=== PATIENT | male | born 1970 ===

== ENCOUNTER 2018-08-27 16:19 | Emergency (ER) | payer OTHER ==
--- NOTE | 2018-08-27 18:26 | CT ---
Date of service: 08/27/2018 PROCEDURE: CT HEAD WITHOUT CONTRAST. HISTORY: Headache COMPARISON: None available. TECHNIQUE: Axial computed tomography images were obtained through the head/brain without intravenous contrast. Radiation dose: Total exam DLP = 838.68 mGy-cm. This CT exam was performed using one or more of the following dose reduction techniques: Automated exposure control, adjustment of the mA and/or kV according to patient size, and/or use of iterative reconstruction technique. FINDINGS: HEMORRHAGE: No intracranial hemorrhage. BRAIN: Da Silva-white matter differentiation is preserved. There is no mass, mass effect or abnormal extra-axial fluid collection. There is no territorial infarction. The midline sagittal structures are normal. VENTRICLES: The ventricles are normal in size, shape and configuration. There is a mamadou cisterna magna. CALVARIUM: There is no calvarial fracture or extracranial soft tissue swelling. PARANASAL SINUSES: Predominantly clear. MASTOID AIR CELLS: Predominantly clear. OTHER FINDINGS: None. IMPRESSION: No acute intracranial abnormality.
--- NOTE | 2018-08-27 18:42 | CT ---
Date of service: 08/27/2018 PROCEDURE: CT Cervical Spine without contrast HISTORY: Left-sided neck pain COMPARISON: None available. TECHNIQUE: Axial computed tomography images were obtained of the cervical spine without the use of intravenous contrast. Coronal and sagittal reformatted images were created and reviewed. Radiation dose: Total exam DLP = 348.33 mGy-cm. This CT exam was performed using one or more of the following dose reduction techniques: Automated exposure control, adjustment of the mA and/or kV according to patient size, and/or use of iterative reconstruction technique. FINDINGS: VERTEBRAE: There is normal alignment of the cervical vertebral bodies. There is loss of normal cervical lordosis. Vertebral height is normal. Bone mineralization is normal. There is no acute fracture or traumatic anterior listhesis. The craniocervical junction is normal. The atlantoaxial joint normal. DISCS/SPINAL CANAL/NEURAL FORAMINA: Evaluation of the discs and spinal canal is limited on noncontrast CT examination. Allowing for this, there is mild multilevel degenerative disc disease due to combination of disc osteophyte complexes, uncovertebral joint hypertrophy and mild multilevel facet arthropathy, worse at C3-4 with small central disc protrusion and moderate left neural foraminal narrowing. There is also mild left neural foraminal narrowing at C4-5. No central spinal canal stenosis. PARASPINAL SOFT TISSUES: The paraspinous soft tissues are normal. OTHER FINDINGS: None. IMPRESSION: No acute fracture or traumatic anterior listhesis. Mild multilevel degenerative disc disease, worse at C3-4 with moderate left neural foraminal narrowing without central spinal canal stenosis. Mild left neural foraminal narrowing at C4-5. Straightening of the cervical spine may be positional or related to muscle spasm.
[2018-08-27 18:46] LABS: BASO # 0.1 K/uL (0.0-0.2); BASO % 0.9 % (0.0-2.0); EOS # 0.1 K/uL (0.0-0.7); EOS % 1.2 % (0.0-4.0); HEMOGLOBIN 13.2 g/dL (12.0-18.0); LYMPH # 1.9 K/uL (1.0-4.3); LYMPH % 23.3 % (20.0-40.0); MEAN CELL VOLUME 90.6 fl (80.0-94.0); MEAN CORPUSCULAR HEMOGLOBIN 29.9 pg (27.0-31.0); MEAN PLATELET VOLUME 8.5 fl (7.2-11.7); MONO # 0.6 K/uL (0.0-0.8); MONO % 7.1 % (0.0-10.0); NEUT # 5.5 K/uL (1.8-7.0); NEUT % 67.5 % (50.0-75.0); RBC 4.42 Mil/uL (4.40-5.90); RED CELL DISTRIBUTION WIDTH 13.2 % (11.5-14.5); WHITE BLOOD COUNT 8.1 K/uL (4.8-10.8)
[2018-08-27 19:02] LABS: ALB/GLOB RATIO 1.1 (1.0-2.1); ALBUMIN 4.3 g/dL (3.5-5.0); ALT/SGPT 30 U/L (21-72); AST/SGOT 28 U/L (17-59); BLOOD UREA NITROGEN 20 mg/dl (9-20); CALCIUM 9.4 mg/dL (8.4-10.2); GFR NON-AFRICAN AMERICAN > 60
--- NOTE | 2018-08-27 19:09 | ED PDOC ---
HPI: General Adult Time Seen by Provider: 08/27/18 17:31 Chief Complaint (Nursing): Chest Pain Chief Complaint (Provider): Neck Pain History Per: Patient History/Exam Limitations: no limitations Onset/Duration Of Symptoms: Days (x 3-4) Current Symptoms Are (Timing): Constant (waxes and wanes) Additional Complaint(s): 47 year old male with no significant medical history presents to the ED for evaluation of left sided neck pain ongoing for 3-4 days radiating to his left chest and left upper extremity. Pain is constant, but waxes and wanes. It is exacerbated with certain movements of his neck and elevating his left arm. He admits that he has experienced stress recently due to both family and work. Patient was seen at a clinic in [place] and advised to visit the ER. However, he decided to wait because he wanted to go to work and come to this hospital. He took Advil with mild relief. Denies shortness of breath, fever, chills and recent injury. PMD: none Past Medical History Reviewed: Historical Data, Nursing Documentation, Vital Signs Vital Signs: Last Vital Signs Temp 98.5 F 08/27/18 16:28 Pulse 101 H 08/27/18 16:28 Resp 16 08/27/18 16:28 BP 135/81 08/27/18 16:28 Pulse Ox 96 08/27/18 16:28 - Medical History PMH: No Chronic Diseases Denies: Chronic Kidney Disease - Surgical History Surgical History: Tonsillectomy - Family History Family History: States: Unknown Family Hx, Hypertension, Other Other Family History: cancer - Social History Current smoker - smoking cessation education provided: No Alcohol: None - Home Medications Home Medications: Ambulatory Orders Medication Instructions Recorded Cyclobenzaprine [Flexeril] 5 mg PO Q8 PRN #15 tab 08/27/18 Ibuprofen [Motrin Tab] 600 mg PO Q8 PRN #60 tab 08/27/18 Lidocaine 5% [Lidoderm] 1 ea TD DAILY PRN #20 patch 08/27/18 - Allergies Allergies/Adverse Reactions: Allergies Allergy/AdvReac Type Severity Reaction Status Date / Time No Known Allergies Allergy Verified 08/27/18 16:28 Review of Systems ROS Statement: Except As Marked, All Systems Reviewed And Found Negative Constitutional: Negative for: Fever, Chills Cardiovascular: Positive for: Chest Pain Respiratory: Negative for: Shortness of Breath Musculoskeletal: Positive for: Neck Pain (left), Arm Pain (left) Physical Exam - Reviewed Nursing Documentation Reviewed: Yes Vital Signs Reviewed: Yes - Physical Exam Appears: Positive for: No Acute Distress Head Exam: Positive for: ATRAUMATIC, NORMAL INSPECTION, NORMOCEPHALIC Skin: Positive for: Normal Color, Warm, Dry. Negative for: Rash Eye Exam: Positive for: EOMI, Normal appearance, PERRL Neck: Negative for: Painless ROM ((+) mild tenderness to palpation of SCM; Full ROM), Decreased ROM ((-) midline tenderness) Cardiovascular/Chest: Positive for: Regular Rate, Rhythm. Negative for: Murmur Respiratory: Positive for: Normal Breath Sounds (lungs clear to auscultation). Negative for: Wheezing, Respiratory Distress Gastrointestinal/Abdominal: Positive for: Normal Exam. Negative for: Guarding Back: Positive for: Normal Inspection. Negative for: Muscle Spasm Extremity: Positive for: Normal ROM. Negative for: Deformity Neurological/Psych: Positive for: Awake, Alert, Normal Tone, Symmetric/Intact Strength (5/5 strength in bilateral upper extremities), Oriented. Negative for: Motor/Sensory Deficits - Laboratory Results Result Diagrams: 08/27/18 18:28 08/27/18 18:28 Lab Results: Total Bilirubin 0.2 mg/dl (0.2-1.3) 08/27/18 18:28 AST 28 U/L (17-59) 08/27/18 18:28 ALT 30 U/L (21-72) 08/27/18 18:28 Alkaline Phosphatase 120 U/L (38-126) 08/27/18 18:28 Total Protein 8.1 G/DL (6.3-8.2) 08/27/18 18:28 Albumin 4.3 g/dL (3.5-5.0) 08/27/18 18: Globulin 3.7 gm/dL (2.2-3.9) 08/27/18 18:28 Albumin/Globulin Ratio 1.1 (1.0-2.1) 08/27/18 18:28 - ECG ECG: Positive for: Interpreted By Me ECG Rhythm: Positive for: Normal QRS, Normal ST Segment, Sinus Rhythm O2 Sat by Pulse Oximetry: 96 (RA) Pulse Ox Interpretation: Normal Medical Decision Making Medical Decision Makin:58 Impression: left sided neck pain and headache Differential diagnoses include but are not limited to: cervical radiculopathy, migraine, intracerebral mass, electrolyte abnormality, stress Initial Plan: --CT Head --CT C-spine --CBC --CMP --Magnesium --Phosphate --Flexeril 10 mg PO --Toradol 30 mg IV 18:22 CT Head FINDINGS: HEMORRHAGE: No intracranial hemorrhage. BRAIN: Da Silva-white matter differentiation is preserved. There is no mass, mass effect or abnormal extra-axial fluid collection. There is no territorial infarction. The midline sagittal structures are normal. VENTRICLES: The ventricles are normal in size, shape and configuration. There is a mamadou cisterna magna. CALVARIUM: There is no calvarial fracture or extracranial soft tissue swelling. PARANASAL SINUSES: Predominantly clear. MASTOID AIR CELLS: Predominantly clear. OTHER FINDINGS: None. IMPRESSION: No acute intracranial abnormality. 18:38 CT Cervical Spine FINDINGS: VERTEBRAE: There is normal alignment of the cervical vertebral bodies. There is loss of normal cervical lordosis. Vertebral height is normal. Bone mineralization is normal. There is no acute fracture or traumatic anterior listhesis. The craniocervical junction is normal. The atlantoaxial joint normal. DISCS/SPINAL CANAL/NEURAL FORAMINA: Evaluation of the discs and spinal canal is limited on noncontrast CT exa mination. Allowing for this, there is mild multilevel degenerative disc disease due to combination of disc osteophyte complexes, uncovertebral joint hypertrophy and mild multilevel facet arthropathy, worse at C3-4 with small central disc protrusion and moderate left neural foraminal narrowing. There is also mild left neural foraminal narrowing at C4-5. No central spinal canal stenosis. PARASPINAL SOFT TISSUES: The paraspinous soft tissues are normal. OTHER FINDINGS: None. IMPRESSION: No acute fracture or traumatic anterior listhesis. Mild multilevel degenerative disc disease, worse at C3-4 with moderate left neural foraminal narrowing without central spinal canal stenosis. Mild left neural foraminal narrowing at C4-5. Straightening of the cervical spine may be positional or related to muscle spasm. No clinically significant abnormalities. -- Scribe Attestation: Documented by Azra Smith, acting as a scribe for Lamar Hanson MD. Provider Scribe Attestation: All medical record entries made by the Scribe were at my direction and personally dictated by me. I have reviewed the chart and agree that the record accurately reflects my personal performance of the history, physical exam, medical decision making, and the department course for this patient. I have also personally directed, reviewed, and agree with the discharge instructions and disposition. Disposition - Clinical Impression Clinical Impression: Cervical radiculopathy, Degenerative disc disease, cervical Counseled Patient/Family Regarding: Studies Performed, Diagnosis, Need For Followup, Rx Given - Disposition Referrals: [facility] [Outside] (FOLLOWUP WITH A PMD WITHIN A WEEK FOR FURTHER EVALUATION AND MANAGEMENT. YOU CAN CALL [facility] FOR ASSISTANCE WITH SCHEDULING AN APPOINTMENT) Disposition: Routine/Home Disposition Time: 19:45 Condition: IMPROVED Prescriptions: Cyclobenzaprine [Flexeril] 5 mg PO Q8 PRN #15 tab PRN Reason: muscle spasm Ibuprofen [Motrin Tab] 600 mg PO Q8 PRN #60 tab PRN Reason: Pain, Moderate (4-7) Lidocaine 5% [Lidoderm] 1 ea TD DAILY PRN #20 patch PRN Reason: PAIN Instructions: Degenerative Disc Disease (DC), Radiculopathy (DC) Forms: [facility] ED School/Work Excuse Print Language: ANGUILLAN
[2018-08-28 06:14] VITALS: BP 131/70; PULSE 87; RESP 18; TEMP 98.4; O2SAT 99
--- NOTE | 2018-08-28 09:07 | CARD ---
APPROVED REPORT Date of service: 08/27/2018 EKG Measurement Heart [id number] 140P38 [id number] <Conclusion> Normal sinus rhythm Normal ECG
== END 2018-08-27 20:10 | disposition home or self-care (01) ==
LOC: H.ER 16:19
DX: M54.12 Radiculopathy, cervical region (principal); M50.30 Other cervical disc degeneration, unspecified cervical region; M48.02 Spinal stenosis, cervical region; R07.89 Other chest pain
CPT/HCPCS: 70450; 72125; 80053; 83735; 84100; 85025; 93005; 96374; 99285; J1885

== ENCOUNTER 2018-11-14 14:35 | Emergency (ER) | payer OTHER ==
--- NOTE | 2018-11-14 15:51 | ED PDOC ---
HPI: Chest Pain Time Seen by Provider: 11/14/18 14:55 Chief Complaint (Nursing): Chest Pain Chief Complaint (Provider): acute chest pain, Right arm swelling History Per: Patient History/Exam Limitations: no limitations Additional Complaint(s): 48 y/o m with no significant PMH who presents with Right arm pain and swelling. PT states that he began noticing a "lump" on his Right chest this morning and then noted swelling w/o pain of Right elbow which then progressed to Right wrist and hand swelling. Denies trauma/fall, fever, chills, night sweats. He took a medication given to him by his co-worker for pain but cannot recall the name. States that he has been having a lot of difficulty making a fist. Past Medical History Reviewed: Historical Data, Nursing Documentation, Vital Signs Primary Care Provider: FAMILY PROVIDER,NO - Medical History PMH: No Chronic Diseases Denies: Chronic Kidney Disease - Surgical History Surgical History: Tonsillectomy - Family History Family History: States: Unknown Family Hx, Hypertension - Home Medications Home Medications: Ambulatory Orders Medication Instructions Recorded Cyclobenzaprine [Flexeril] 5 mg PO Q8 PRN #15 tab 08/27/18 Ibuprofen [Motrin Tab] 600 mg PO Q8 PRN #60 tab 08/27/18 Lidocaine 5% [Lidoderm] 1 ea TD DAILY PRN #20 patch 08/27/18 Indomethacin 50 mg PO Q6 PRN 7 Days capsule 11/14/18 - Allergies Allergies/Adverse Reactions: Allergies Allergy/AdvReac Type Severity Reaction Status Date / Time No Known Allergies Allergy Verified 08/27/18 16:28 Review of Systems Constitutional: Negative for: Fever, Chills Cardiovascular: Negative for: Chest Pain Respiratory: Negative for: Cough, Shortness of Breath Musculoskeletal: Positive for: Arm Pain, Hand Pain Physical Exam - Reviewed Nursing Documentation Reviewed: Yes Vital Signs Reviewed: Yes - Physical Exam Appears: Positive for: No Acute Distress Skin: Positive for: Normal Color Cardiovascular/Chest: Positive for: Regular Rate, Rhythm, Chest Non Tender, Other (no nodules/swelling noted) Respiratory: Positive for: Normal Breath Sounds Extremity: Positive for: Normal ROM (with flexion and extension of Right shoulder. ), Tenderness (on palpation of anterior and posterior wrist with mild associated erythema. ), Swelling (at olecranon process, no erythema or ecchymosi s. + diffuse swelling at Right wrist to all 5 digits with decreased ROM with flexion of all 5 digits and wrist/ ) - Laboratory Results Result Diagrams: 11/14/18 16:00 11/14/18 16:00 Medical Decision Making Medical Decision Making: CBC, CMP CXR CXR: no active disease RUE venous duplex: FINDINGS: RIGHT: 1. Internal Jugular Vein: Compressibility - Fully compressible: Thrombus - None : Flow - Phasic 2. Subclavian Vein:Compressibility - Fully compressible: Thrombus - None : Flow - Phasic 3. Axillary Vein: Compressibility - Fully compressible: Thrombus - None 4. Brachial Vein: Compressibility - Fully compressible: Thrombus - None 5. Ulnar Vein:Compressibility - Fully compressible: Thrombus - None 6. Radial Vein:Compressibility - Fully compressible: Thrombus - None 7. Cephalic Vein: Compressibility - Fully compressible: thrombus - None 8. Basilic Vein:Compressibility - Fully compressible: thrombus - None OTHER FINDINGS: None. IMPRESSION: No evidence of right upper extremity venous thrombosis. Prior to discharge, pt noted to have redness and increased warmth. Patient denies hx of gout but states that he had elevated uric acid levels in lab work done as part of physical exam about 3 months ago. Patient treated for likely gout of the wrist with Indomethacin 50mg PO x 1. STable for d/c home with referral to PMD and return instructions given. Disposition - Clinical Impression Clinical Impression: Gout attack - Patient ED Disposition Is Patient to be Admitted: No - Disposition Referrals: Sushil Adkins MD [Medical Doctor] - Disposition: Routine/Home Disposition Time: 19:35 Condition: STABLE Additional Instructions: Follow up with your primary care doctor for further evaluation and treatment of gout. Take Indomethacin for pain as directed. Elevate your arm as often as possible. Avoid acidic foods such as tomato sauce, caffeine, chocolate, anchovies or alcohol especially during acute attack. Prescriptions: Indomethacin 50 mg PO Q6 PRN 7 Days capsule PRN Reason: Pain, Moderate (4-7) Instructions: Lifestyle Changes to Manage Gout, Gout (DC) Forms: [facility] (Lithuanian) Print Language: LUXEMBOURGISH
--- NOTE | 2018-11-14 16:41 | RAD ---
Date of service: 11/14/2018 HISTORY: Cough, shortness of breath. COMPARISON: No prior. TECHNIQUE: Chest PA and lateral views FINDINGS: LUNGS: No active pulmonary disease. PLEURA: No significant pleural effusion identified. No pneumothorax apparent. CARDIOVASCULAR: No aortic atherosclerotic calcification present. Normal cardiac size. No pulmonary vascular congestion. OSSEOUS STRUCTURES: No significant abnormalities. VISUALIZED UPPER ABDOMEN: Normal. OTHER FINDINGS: None. IMPRESSION: No active disease.
[2018-11-14 16:51] LABS: BASO % 0.4 % (0.0-2.0); EOS # 0.1 K/uL (0.0-0.7); EOS % 0.6 % (0.0-4.0); HEMOGLOBIN 12.7 g/dL (12.0-18.0); LYMPH # 1.1 K/uL (1.0-4.3); LYMPH % 12.6 % (20.0-40.0); MEAN CELL VOLUME 89.2 fl (80.0-94.0); MEAN CORPUSCULAR HEMOGLOBIN 29.8 pg (27.0-31.0); MEAN CORPUSCULAR HGB CONC 33.5 g/dL (33.0-37.0); MEAN PLATELET VOLUME 8.3 fl (7.2-11.7); MONO # 0.6 K/uL (0.0-0.8); MONO % 6.7 % (0.0-10.0); NEUT # 7.1 K/uL (1.8-7.0); NEUT % 79.7 % (50.0-75.0); RBC 4.25 Mil/uL (4.40-5.90); RED CELL DISTRIBUTION WIDTH 13.4 % (11.5-14.5)
[2018-11-14 17:03] LABS: BLOOD UREA NITROGEN 16 mg/dl (9-20); CALCIUM 9.1 mg/dL (8.4-10.2); GFR NON-AFRICAN AMERICAN > 60
--- NOTE | 2018-11-14 18:07 | US ---
Date of service: 11/14/2018 PROCEDURE: Right Upper Extremity Venous Duplex Exam HISTORY: acute R arm swelling, r/o DVT PRIORS: None. TECHNIQUE: Right upper extremity, internal jugular, subclavian, axillary, brachial, ulnar, radial, basilic and upper cephalic veins were evaluated. Flow was assessed with color Doppler, compressibility, assessment of phasic flow and augmentation response. Report prepared by industrial engineering technologist. FINDINGS: RIGHT: 1. Internal Jugular Vein: Compressibility - Fully compressible: Thrombus - None : Flow - Phasic 2. Subclavian Vein:Compressibility - Fully compressible: Thrombus - None : Flow - Phasic 3. Axillary Vein: Compressibility - Fully compressible: Thrombus - None 4. Brachial Vein: Compressibility - Fully compressible: Thrombus - None 5. Ulnar Vein:Compressibility - Fully compressible: Thrombus - None 6. Radial Vein:Compressibility - Fully compressible: Thrombus - None 7. Cephalic Vein: Compressibility - Fully compressible: thrombus - None 8. Basilic Vein:Compressibility - Fully compressible: thrombus - None OTHER FINDINGS: None. IMPRESSION: No evidence of right upper extremity venous thrombosis.
[2018-11-14 19:33] VITALS: BP 120/83; PULSE 78; RESP 16; TEMP 98; O2SAT 98
--- NOTE | 2018-11-15 19:20 | CARD ---
APPROVED REPORT Date of service: 11/14/2018 EKG Measurement Heart [id number] <Conclusion> Normal sinus rhythm Normal ECG
== END 2018-11-14 19:44 | disposition home or self-care (01) ==
LOC: H.ER 14:35
DX: M10.9 Gout, unspecified (principal)